=== PATIENT | female | born 1950 | race Caucasian/White ===

== ENCOUNTER → 2021-10-27 | Outpatient (CLI) | payer MEDICARE ==
--- NOTE | 2021-10-27 16:26 | P.SLEEP ---
History of Present Illness DATE: 10/27/2021 CONSULTATION/NEW PATIENT EVALUATION HISTORY OF PRESENT ILLNESS/SLEEP-WAKE EVALUATION: 70 year old lady had been evaluated in the sleep center for possible obstructive sleep apnea hypopnea syndrome. SLEEP SCHEDULE: Usually sleep schedule from midnight2 AM until 7 AM. FALLING ASLEEP: Patient does have problems with falling asleep, does not have a regular time of going to bed and she reeds in bedroom. DURING SLEEP: According to patient family she snores and she wakes up from sleep up to 5 times. Positive history of any contacts during sleep, restless leg symptoms and sleep talking No history of hypnogogical hallucinations, sleep paralysis, or cataplexy. DURING THE DAY/WAKE STATE: In the morning patient wake up diet falling asleep during the day. [place] sleepiness scale is significantly increased to 13. Patient usually doesn't take naps. She drinks up to 5 cups of coffee a day. PAST MEDICAL HISTORY: Hypertension, depression, hyperlipidemia. PAST SURGICAL HISTORY: Surgery for right eye at 89 detachment, left knee surgery for torn meniscus, . MEDICATIONS: Fluoxetine 20 mg once a day, irbesartan 50 mg once a day, aspirin 81 mg once a day, amitriptyline 10 mg once a day, pravastatin 10 mg once a day. SOCIAL HISTORY: Negative for smoking, alcohol consumption rarely. FAMILY HISTORY: Hypertension, heart problems. REVIEW OF SYSTEMS: Multiple awakenings from sleep, sleepiness during the day. No fevers. No double vision. No recent chest pain. No shortness of breath. No abdominal pain. No bleeding episodes. No blood in urine. No seizure episodes. PHYSICAL EXAMINATION: GENERAL: A pleasant patient without any distress. VITAL SIGNS: BP 131/72 , HR 82 , RR 16 , weight 265 pounds, height 5 foot 4 inches, body mass index 45.4 . HEENT: PERRLA, EOMI. Evaluation of oropharynx showed tongue protrudes midline, low position of soft palate Mallampati 4. NECK: Supple. No JVD. Thyroid is not palpable. 16.5 inches in circumference. LUNGS: Clear to percussion and to auscultation. Good air exchange. No wheezing or rhonchi. HEART: S1, S2 regular. No murmurs, gallops or rubs. ABDOMEN: Soft and nontender. Bowel sounds are present. No organomegaly appreciated. EXTREMITIES: No clubbing or cyanosis. TUB MENDER: Awake, alert, and oriented x3. Cranial nerves 2 to 7 intact. There is no fasciculation or atrophy noted. No focal deficits observed. ASSESSMENT: 1. Snoring, multiple awakenings from sleep, extremely low position of soft palate Mallampati 4, whide neck 16.5 inches, sleepiness [place] Sleepiness Scale is 13. Obstructive sleep apnea hypopnea syndrome. 2. Obesity body mass index 45.4. 3 hypertension. 4. Depression. 5 hyperlipidemia. 6. Status post cholecystectomy. 7. Status post tonsillectomy. 8. Status post surgery for retina detachment on the right eye. 9. Status post left knee surgery for torn meniscus. PLAN: 1. Polysomnography for evaluation of patient's breathing during sleep. 2. CPAP/BiPAP titration if sleep study confirms obstructive sleep apnea- hypopnea syndrome. 3. Preferable position during sleep on the side. 4. No driving if patient feels any sleepiness. Patient is aware of civil and criminal liability for unsafe driving. 5. Sleep hygiene with regular sleep time for at least 7.5-8 hours. 6. Watching and losing weight. Thank you very much for referring this patient for consultation. Sincerely, Robin Domingo MD, PhD, FAASM. Diplomat of [employer] [employer], Sleep Medicine Board by [place] [employer] [employer] [facility] [place] [facility] Note - Sleep Note Sleep Note: Temperature: Pulse Rate: Respiratory Rate: Blood Pressure: SpO2: Height: Weight: BMI: Neck Circumference:
== END | disposition home or self-care (01) ==
LOC: SLEEP 15:40
PROVIDERS: ATTEND Internal Medicine
DX: G47.33 Obstructive sleep apnea (adult) (pediatric) (principal); E66.9 Obesity, unspecified; Z68.42 Body mass index [BMI] 45.0-49.9, adult; I10 Essential (primary) hypertension; F32.9 Major depressive disorder, single episode, unspecified; E78.5 Hyperlipidemia, unspecified; Z90.49 Acquired absence of other specified parts of digestive tract; Z98.890 Other specified postprocedural states; Z90.89 Acquired absence of other organs
CPT/HCPCS: 99211